=== PATIENT | male | born 2000 | race Caucasian/White ===

== ENCOUNTER 2020-05-22 08:07 | Inpatient (IN) | payer OTHER ==
[~2020-05-22] VITALS: Ht 180.3 cm; Wt 74.3 kg
[2020-05-22 08:50] LABS: HEMATOCRIT 50.1 % (42.0-52.0); HEMOGLOBIN 16.6 g/dl (13.5-17.5); MEAN CORPUSCULAR HEMOGLOBIN 29.2 pg (27.0-33.0); MEAN CORPUSCULAR HGB CONC 33.1 g/dl (32.0-36.5); PLATELET COUNT, AUTOMATED 250 10^3/uL (150-450); RED BLOOD COUNT 5.69 10^6/uL (4.30-6.10); WHITE BLOOD COUNT 5.9 10^3/uL (4.0-10.0)
[2020-05-22 09:13] LABS: AMPHETAMINES LEVEL URINE NEGATIVE (NEGATIVE); BARBITURATES URINE NEGATIVE (NEGATIVE); BENZODIAZEPINES URINE NEGATIVE (NEGATIVE); CANNABINOIDS URINE NEGATIVE (NEGATIVE); COCAINE METABOLITE URINE NEGATIVE (NEGATIVE); METHADONE URINE NEGATIVE (NEGATIVE); OPIATES URINE NEGATIVE (NEGATIVE); PHENCYCLIDINE URINE NEGATIVE (NEGATIVE)
[2020-05-22 09:27] LABS: ACETAMINOPHEN LEVEL < 2.0 UG/ML (10.0-30.0); ALBUMIN 4.4 GM/DL (3.2-5.2); ALT/SGPT 42 U/L (12-78); BILIRUBIN,DIRECT 0.3 MG/DL (0.0-0.2); BILIRUBIN,TOTAL 1.1 MG/DL (0.2-1.0); BLOOD UREA NITROGEN 19 MG/DL (7-18); CALCIUM LEVEL 8.9 MG/DL (8.5-10.1); CARBON DIOXIDE LEVEL 29 MEQ/L (21-32); CHLORIDE LEVEL 107 MEQ/L (98-107); CREATININE FOR GFR 1.17 MG/DL (0.70-1.30); ETHYL ALCOHOL (ETHANOL) 0.003 % (0.000-0.010); GLUCOSE, FASTING 79 MG/DL (70-100); POTASSIUM SERUM 4.6 MEQ/L (3.5-5.1); SALICYLATE LEVEL < 1.7 MG/DL (5.0-30.0); SODIUM LEVEL 140 MEQ/L (136-145); TOTAL PROTEIN 7.3 GM/DL (6.4-8.2)
[2020-05-22] MEDS ORDERED: MAALOX 30 ML SUSP *UDC PO PRN (19:45)
[2020-05-22] MEDS ORDERED: ACETAMINOPHEN TAB 650MG DOSE (2X325MG) PO PRN (19:45)
[2020-05-22] MEDS ORDERED: traZODone 50 MG TAB PO PRN (19:45)
[2020-05-22] MEDS ORDERED: OLANZapine ORAL DISINTEGRATING TAB 5MG PO PRN (19:45)
[2020-05-22] MEDS ORDERED: MOM 30ML SUSPENSION UDC PO PRN (19:45)
[2020-05-22 21:53] VITALS: BP 163/74
[2020-05-23 06:46] VITALS: BP 122/82
--- NOTE | 2020-05-23 11:59 | HPEPDOC ---
General Date of Admission May 22, 2020 at 19:31 Date of Service: May 23, 2020 Chief Complaint The patient is a 19-year-old male admitted with a reason for visit of Unspecified Depressive Disorder. Source: Patient Exam Limitations: No limitations Timing/Duration: Week(s) Severity: Mild History of Present Illness Patient is 19 years old male without significant past medical history presented hospital with major depressive episode. Patient stated that for past 3 weeks he was feeling down because of multiple responsibilities in the [employer]. He stated it was difficult to be in [employer] environment. Patient denied any suicidal ideation. Patient denied fever, chills, chest pain, shortness of breath, nausea, v omiting, diarrhea or dysuria Home Medications No Active Prescriptions or Reported Meds Allergies Coded Allergies: No Known Allergies (Unverified , 05/22/20) Past Medical History Medical History No past medical history Social History * Smoker: current smoker Drugs: cocaine, marijuana A-FIB/CHADSVASC A-FIB History Current/History of A-Fib/PAF?: No Current PO Anticoag Therapy: No Review of Systems Constitutional: Denies: Chills, Fever Eyes: Denies: Pain ENT: Denies: Head Aches Skin: Denies: Rash, Lesions Pulmonary: Denies: Dyspnea Cardiovascular: Denies: Chest Pain Gastrointestinal: Denies: Nausea, Vomiting Genitourinary: Denies: Dysuria Hematologic: Denies: Bruising Endocrine: Denies: Polydipsia Musculoskeletal: Denies: Neck Pain Neurological: Denies: Weakness Psych: Reports: Mood Normal Physical Examination General Exam: Positive: Alert, Cooperative Eye Exam: Positive: PERRLA ENT Exam: Positive: Atraumatic Neck Exam: Positive: Supple; Negative: JVD Chest Exam: Positive: Clear to auscultation Telemetry: Positive: No significant arrhythmia Abdomen Exam: Positive: Normal bowel sounds Extremity Exam: Negative: Clubbing Skin Exam: Positive: Nl turgor and temperature Neuro Exam: Positive: Normal Gait Psych Exam: Positive: Anxiety Vital Signs Vital Signs Date Time Temp Pulse Resp B/P (MAP) Pulse Ox O2 Delivery O2 Flow Rate FiO2 05/23/20 11:11 Room Air 05/23/20 06:46 97.9 69 16 122/82 (95) 05/22/20 15:19 99 Assessment/Plan Patient is 19 years old male without significant past medical history presented hospital with major depressive episode. Patient stated that for past 3 weeks he was feeling down because of multiple responsibilities in the [employer]. He stated it was difficult to be in [employer] environment. Patient denied fever, chills, chest pain, shortness of breath, nausea, vomiting, diarrhea or dysuria Problems (1) Suicidal ideation Status: Acute Problem Text: Defer treatment psych team (2) Depressed Status: Acute Problem Text: Defer treatment psych team Plan / VTE VTE Prophylaxis Ordered?: No VTE Exclusion Mechanical Proph: Low Risk for VTE BENNIE MENENDEZ DO May 23, 2020 11:59
--- NOTE | 2020-05-23 12:54 | MHHPEPDOC ---
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 He reported that he needed to talk to someone and was brought in due to suicidal thoughts. He was admitted, where he was notably depressed on initial interview. Patient reported loss of interest, fatigue, concentration problems, and the setting of multiple psychosocial stressors, describing his experience to be increasingly impaired. FAMILY HISTORY: Patient has a past medical history of ADHD with treatment in the distant past as a child, but no recent diagnosis, treatments, patient admissions or suicide attempts. His family history is non-contributory. SOCIAL HISTORY - OCCUPATION: He is currently and works as a soldier. SOCIAL HISTORY - LIVING SITUATION: He is living in the [facility]. SOCIAL HISTORY - SMOKING: Patient denies any substance use problems at this time. TESTS: Screen saying it for bipolar disorder, psychotic disorder, or PTSD at this time. SURGICAL HISTORY: His surgical history and allergies were also reviewed. Objective Appearance: Appears to be stated age. Well groomed. Well nourished. Fair hygiene. Mood: Constricted. Generally good. Heavily dysthymic. Speech: Monotonous. Slow. Thought Form: Association intact. Thought Content: No evidence of aggressive or homicidal ideation. No thoughts of self harm. No evidence of suicidal ideation. No evidence of delusions. Judgement: Fair. Insight: Fair. Assessment F32.2 Major depressive disorder, single episode, severe without psychotic features Plan Begin taking Wellbutrin, extended release, 150 mg daily Patient has been on Lexapro in the past reportedly for depression. However, he could not confirm the exact nature of the treatment, reporting it was unhelpful. Treatment priorities are 1. Risk for suicide 2. Depression. Estimated length of stay is 1 to 5 days. Vital Signs Vital Signs Date Time Temp Pulse Resp B/P (MAP) Pulse Ox O2 Delivery O2 Flow Rate FiO2 05/23/20 11:11 Room Air 05/23/20 06:46 97.9 69 16 122/82 (95) 05/22/20 15:19 99 Medications No Active Prescriptions or Reported Meds Allergies Coded Allergies: No Known Allergies (Unverified , 05/22/20) EBONI DALY DO May 23, 2020 12:54
[2020-05-23] MEDS: buPROPion **XL** TABLET 150MG (WELLBUTRIN XL) PO SCH (15:22)
[2020-05-23 16:26] VITALS: BP 135/69
[2020-05-24 06:44] VITALS: BP 143/65
[2020-05-24] MEDS: buPROPion **XL** TABLET 150MG (WELLBUTRIN XL) PO SCH (09:04)
--- NOTE | 2020-05-24 15:03 | MHIPNPDOC ---
[facility] Progress Note Progress Note DATE OF SERVICE: 05/24/20 HPI: Poncho presents today for a follow up. Patient reports no major changes in mood and energy levels. He states that depression is a significant problem. Patient specifically asks about depression and psycho education. MEDICATIONS: Patient has started on Wellbutrin as of today. Objective Behavior: Cooperative with good eye contact. Affect: Flat. Speech: Monotone. Judgement: Fair. Insight: Fair. Assessment F32.2 Major depressive disorder, single episode, severe without psychotic features Plan Continue with 150 milligrams daily of Wellbutrin Vital Signs Vital Signs Date Time Temp Pulse Resp B/P (MAP) Pulse Ox O2 Delivery O2 Flow Rate FiO2 05/24/20 06:44 98.0 73 16 143/65 (91) 97 Room Air Current Medications Current Medications Medications (Trade) Dose Ordered Sig/Venkat Route PRN Reason Start Time Stop Time Status Last Admin Dose Admin Acetaminophen (Tylenol Tab) 650 mg Q6HP PRN PO HEADACHE or DISCOMFORT 05/22/20 19:45 Al Hydrox/Mg Hydrox/Simethicone (Mylanta) 30 ml Q4HP PRN PO HEARTBURN/INDIGESTION 05/22/20 19:45 Bupropion HCl (Wellbutrin Xl) 150 mg DAILY PO 05/23/20 09:00 05/24/20 09:04 Home Med (Med Rec Complete!) ASDIRECTED XX 05/22/20 14:45 05/22/20 14:40 DC Magnesium Hydroxide (Milk Of Magnesia) 30 ml DAILYPRN PRN PO CONSTIPATION 05/22/20 19:45 Olanzapine (ZyPREXA ZYDIS) 5 mg Q4HP PRN PO AGITATION 05/22/20 19:45 Trazodone HCl (Desyrel) 50 mg QHSP PRN PO INSOMNIA 05/22/20 19:45 Allergies Coded Allergies: No Known Allergies (Unverified , 05/22/20) EBONI DALY DO May 24, 2020 15:03
[2020-05-24 16:39] VITALS: BP 119/56
[2020-05-25 06:47] VITALS: BP 135/60
[2020-05-25] MEDS: buPROPion **XL** TABLET 150MG (WELLBUTRIN XL) PO SCH (09:00)
--- NOTE | 2020-05-25 10:12 | MHIPNPDOC ---
[facility] Progress Note Progress Note DATE OF SERVICE: 05/25/20 HPI: Poncho presents today for a check up. He reports that he is doing better on the antidepressant feeling more improved, energetic, and concentrated. He reports that he is more able to cope with various stressors. Objective Appearance: Well nourished. Appears to be stated age. Well groomed. Behavior: Less dysthymic. Animated. Thought Form: Linear and goal directed. Thought Content: No thoughts of self harm. No evidence of suicidal ideation. No evidence of delusions. No evidence of aggressive or homicidal ideation. Judgement: Intact as evidenced by decision making in the recent past. Insight: Good insight into symptoms and treatment options. Assessment F33.2 Major depressive disorder, recurrent severe without psychotic features Plan Continue Wellbutrin 150 mg daily. Discharge Monday. Vital Signs Vital Signs Date Time Temp Pulse Resp B/P (MAP) Pulse Ox O2 Delivery O2 Flow Rate FiO2 05/25/20 09:42 Room Air 05/25/20 06:47 97.9 57 12 135/60 (85) 05/24/20 06:44 97 Current Medications Current Medications Medications (Trade) Dose Ordered Sig/Venkat Route PRN Reason Start Time Stop Time Status Last Admin Dose Admin Acetaminophen (Tylenol Tab) 650 mg Q6HP PRN PO HEADACHE or DISCOMFORT 05/22/20 19:45 Al Hydrox/Mg Hydrox/Simethicone (Mylanta) 30 ml Q4HP PRN PO HEARTBURN/INDIGESTION 05/22/20 19:45 Bupropion HCl (Wellbutrin Xl) 150 mg DAILY PO 05/23/20 09:00 05/25/20 09:00 Home Med (Med Rec Complete!) ASDIRECTED XX 05/22/20 14:45 05/22/20 14:40 DC Magnesium Hydroxide (Milk Of Magnesia) 30 ml DAILYPRN PRN PO CONSTIPATION 05/22/20 19:45 Olanzapine (ZyPREXA ZYDIS) 5 mg Q4HP PRN PO AGITATION 05/22/20 19:45 Trazodone HCl (Desyrel) 50 mg QHSP PRN PO INSOMNIA 05/22/20 19:45 Allergies Coded Allergies: No Known Allergies (Unverified , 05/22/20) EBONI DALY DO May 25, 2020 10:12
[2020-05-26 06:54] VITALS: BP 123/59
[2020-05-26] MEDS: buPROPion **XL** TABLET 150MG (WELLBUTRIN XL) PO SCH (08:46)
--- NOTE | 2020-05-26 10:25 | MHIPNPDOC ---
[facility] Progress Note Progress Note DATE OF SERVICE: 05/26/20 Subjective HPI: Poncho presents today after being admitted for depression. He states that the medication has helped him have clearer thoughts and focus better. He denies any recurrent suicidal thoughts. He states that he plans on finding a mormonism group, setting small goals for himself, and working out. Objective Appearance: Appears to be stated age. Well nourished. Well groomed. Behavior: Pleasant. Engaged. Cooperative with good eye contact. Affect: Full range. Appropriate to context. Mood: Euthymic. Appropriately reactive. Generally good. Speech: Spontaneous and Fluid. Normal rate. Normal volume. Motor: No gross motor abnormalities. Cognition: Alert, Attentive, and Oriented to person, place, time. Memory: No formal testing. No gross abnormalities of short or shelter memory noted during interview. Thought Form: Linear and goal directed. Thought Content: No evidence of aggressive or homicidal ideation. No thoughts of self harm. No evidence of suicidal ideation. No evidence of delusions. Perception: No perceptual abnormalities noted. Judgement: Intact as evidenced by decision making in the recent past. Insight: Good insight into symptoms and treatment options. Assessment F33.2 Major depressive disorder, recurrent severe without psychotic features Plan Continue wellbutrin, d/c tomorrow as planned doing well Vital Signs Vital Signs Date Time Temp Pulse Resp B/P (MAP) Pulse Ox O2 Delivery O2 Flow Rate FiO2 05/26/20 06:54 97.9 50 12 123/59 (80) Room Air 05/24/20 06:44 97 Current Medications Current Medications Medications (Trade) Dose Ordered Sig/Venkat Route PRN Reason Start Time Stop Time Status Last Admin Dose Admin Acetaminophen (Tylenol Tab) 650 mg Q6HP PRN PO HEADACHE or DISCOMFORT 05/22/20 19:45 Al Hydrox/Mg Hydrox/Simethicone (Mylanta) 30 ml Q4HP PRN PO HEARTBURN/INDIGESTION 05/22/20 19:45 Bupropion HCl (Wellbutrin Xl) 150 mg DAILY PO 05/23/20 09:00 05/26/20 08:46 Home Med (Med Rec Complete!) ASDIRECTED XX 05/22/20 14:45 05/22/20 14:40 DC Magnesium Hydroxide (Milk Of Magnesia) 30 ml DAILYPRN PRN PO CONSTIPATION 05/22/20 19:45 Olanzapine (ZyPREXA ZYDIS) 5 mg Q4HP PRN PO AGITATION 05/22/20 19:45 Trazodone HCl (Desyrel) 50 mg QHSP PRN PO INSOMNIA 05/22/20 19:45 Allergies Coded Allergies: No Known Allergies (Unverified , 05/22/20) EBONI DALY DO May 26, 2020 10:25
[2020-05-26 17:57] VITALS: BP 126/77
[2020-05-27 06:59] VITALS: BP 123/60
[2020-05-27] MEDS: buPROPion **XL** TABLET 150MG (WELLBUTRIN XL) PO SCH (09:08)
--- NOTE | 2020-05-27 10:42 | MHDSPDOC ---
[facility] Discharge Summary Discharge Summary DATE OF ADMISSION: May 22, 2020 at 19:31 DATE OF DISCHARGE: DISCHARGE DIAGNOSES: 1. . 2. . REASON FOR ADMISSION: CONSULTANTS INVOLVED: TREATMENT AND PROGRESS ON THE UNIT : . HOSPITAL COURSE: DISCHARGE ASSESSMENT: MENTAL STATUS EXAMINATION ON DISCHARGE: Patient is a -year old male, who is . Speech is . Language skills are . Thought processes including: . Thought content: . Abstract reasoning, and computation: . Description of associations: . Description of abnormal or psychotic thoughts: . Judgment: . Insight: . Orientation to . Recent and remote memory: . Attention span and concentration: . Language: . Fund of knowledge: . Mood: . Affect: . MEDICATIONS ON DISCHARGE: - for . - for . - for . PLAN/FOLLOWUP ARRANGEMENTS: . The amount of time spent in the coordination of care for this patient was approximately minutes. Vital Signs/I&Os Vital Signs Date Time Temp Pulse Resp B/P (MAP) Pulse Ox O2 Delivery O2 Flow Rate FiO2 05/27/20 06:59 99.5 53 16 123/60 (81) 100 Room Air Medications No Active Prescriptions or Reported Meds Allergies Coded Allergies: No Known Allergies (Unverified , 05/22/20) EBONI DALY DO May 27, 2020 10:42
[2020-05-27] MEDS ORDERED: BUPR150T3 PO ×2 (11:05→14:31)
== END 2020-05-27 13:00 | disposition home or self-care (01) | DRG 885 ==
LOC: M ED 08:07 → M ED INP 19:31 → M PSY 21:48
PROVIDERS: ADMIT Psychiatry & Neurology Addiction Medicine; ATTEND Psychiatry & Neurology Addiction Medicine
DX: F32.2 Major depressive disorder, single episode, severe without psychotic features (principal); R45.851 Suicidal ideations